=== PATIENT | female | born 1990 | race Caucasian/White ===

== ENCOUNTER 2017-08-28 22:35 | Inpatient (IN) | payer OTHER ==
[2017-08-28] MEDS: Lactated Ringers 1,000 ML IV SCH ×2 (23:01→23:34)
[2017-08-28] MEDS ORDERED: Misoprostol 400 MCG (4 X 100 MCG TAB) RECTAL PRN (23:01)
[2017-08-28] MEDS ORDERED: Ondansetron 4 MG/2 ML SDV IV PRN (23:01)
[2017-08-28] MEDS ORDERED: Methylergonovine 0.2 MG/1 ML Amp IM PRN (23:01)
[2017-08-28] MEDS ORDERED: Lactated Ringers 500 ML IV ONE (23:01)
[2017-08-28] MEDS ORDERED: Sodium Chloride 0.9% 10 ML Syringe FLUSH PRN (23:01)
[2017-08-28] MEDS ORDERED: Carboprost Tromethamine 250 MCG/1 ML Amp IM PRN (23:01)
[2017-08-28] MEDS ORDERED: Lidocaine 1% 30 ML SDV INJECT PRN (23:01)
[2017-08-28] MEDS ORDERED: Penicillin G Potassium 5 MILLUNITS in Sodium Chloride 0.9% 100 ML IV ONE (23:01)
[2017-08-28] MEDS ORDERED: Acetaminophen 325 MG Tab PO PRN (23:01)
[2017-08-28] MEDS ORDERED: Tranexamic Acid 1,000 MG in Sodium Chloride 0.9% 100 ML IV PRN (23:01)
[2017-08-28] MEDS ORDERED: Penicillin G Potassium 5,000,000 Unit Vial ONE (23:05)
[2017-08-28] MEDS ORDERED: EPINEPHrine 1 MG/ML SDV ONE (23:09)
[2017-08-28] MEDS ORDERED: Bupivacaine 0.75%/D5W 2 ML Amp ONE (23:09)
[2017-08-28] MEDS ORDERED: fentaNYL 100 MCG/2 ML SDV ONE (23:09)
--- NOTE | 2017-08-28 23:10 | PCM.LDHP ---
L&D History of Present Illness - General Date of Service: 08/28/17 Admit Problem/Dx: Patient Status Order with Admit Dx/Problem 08/28/17 23:01 Patient Status [ADT] Routine Admission Diagnosis/Problem Admission Diagnosis/Problem Normal labor Source of Information: Patient History Limitations: Reports: No Limitations - History of Present Illness Introduction:: Luna is a at 39w6d here with frequent contractions. They have been going on and off for the last few days but started getting more frequent today. They started occurring every 2-4 minutes at 9 pm this evening and are intense in nature. No draper of fluid, vaginal bleeding, baby is moving well. No headaches, vision changes, RUQ pain, dysuria, leg swelling. complications: GBS positive, Anemia (now resolved with iron). Also has seasonal allergies. - Related Data Allergies/Adverse Reactions: Allergies Allergy/AdvReac Type Severity Reaction Status Date / Time No Known Allergies Allergy Verified 08/27/17 22:29 Home Medications: Home Meds Ferrous Sulfate 325 mg PO DAILY 08/27/17 [History] Pnv No.122/Iron/Folic Acid [ Multi Tablet] 1 tab PO DAILY 08/27/17 [ History] Past Medical History HEENT History: Reports: None Cardiovascular History: Reports: None Respiratory History: Reports: None Gastrointestinal History: Reports: None Genitourinary History: Reports: None DIRECTOR PERIOPERATIVE History: Reports: : 1 Para: 0 LMP (Approximate): (39w5d) Musculoskeletal History: Reports: None Neurological History: Reports: None Psychiatric History: Reports: None Endocrine/Metabolic History: Reports: None Hematologic History: Reports: None Immunologic History: Reports: None (seasonal allergies), Other (See Below) Oncologic (Cancer) History: Reports: None Dermatologic History: Reports: None - Infectious Disease History Infectious Disease History: Reports: None - Past Surgical History Head Surgeries/Procedures: Reports: None GI Surgical History: Reports: Appendectomy Social & Family History - Family History Family Medical History: Noncontributory - Tobacco Use Smoking Status *Q: Never Smoker - Caffeine Use Caffeine Use: Reports: Coffee - Alcohol Use Alcohol Use History: No - Recreational Drug Use Recreational Drug Use: No - Living Situation & Occupation Living situation: Reports: Occupation: Employed Social History Comment: LIves with ; works in [employer] H&P Review of Systems - Review of Systems: Review Of Systems: See Below General: Reports: No Symptoms HEENT: Reports: No Symptoms Pulmonary: Reports: No Symptoms Cardiovascular: Reports: No Symptoms Gastrointestinal: Reports: Other (Uterine contractions) Genitourinary: Reports: No Symptoms Musculoskeletal: Reports: No Symptoms Skin: Reports: No Symptoms Psychiatric: Reports: No Symptoms Neurological: Reports: No Symptoms Hematologic/Lymphatic: Reports: No Symptoms Immunologic: Reports: No Symptoms L&D Exam - Exam Exam: See Below - Exam General: Alert, Oriented, Moderate Distress (with contractions) HEENT: PERRLA, Conjunctiva Clear, EACs Clear, EOMI, Hearing Intact, Mucosa Moist & [place], Nares Patent, Normal Nasal Septum, Posterior Pharynx Clear, TMs Clear Neck: Supple, Trachea Midline Lungs: Clear to Auscultation, Normal Respiratory Effort Cardiovascular: Regular Rate, Regular Rhythm GI/Abdominal Exam: Normal Bowel Sounds, Soft, Non-Tender, No Organomegaly, No Distention, No Abnormal Bruit, No Mass, Pelvis Stable Genitourinary: Cervical dilitation () Back Exam: Normal Inspection, Full Range of Motion Extremities: Normal Inspection, Normal Range of Motion, Non-Tender, No Pedal Edema, Normal Capillary Refill Skin: Warm, Dry, Intact Neurological: Cranial Nerves Intact, Reflexes Equal Bilateral Psychiatric: Alert, Normal Affect, Normal Mood - Problem List (1) Normal labor SNOMED Code(s): 43926577 ICD Code: O80 - ENCOUNTER FOR FULL-TERM UNCOMPLICATED DELIVERY; Z37.9 - OUTCOME OF DELIVERY, UNSPECIFIED Status: Acute Current Visit: Yes (2) Positive GBS test SNOMED Code(s): 6893765736923, 3446161758292 ICD Code: B95.1 - STREPTOCOCCUS, GROUP B, CAUSING DISEASES CLASSD ELSWHR Status: Acute Current Visit: Yes Problem List Initiated/Reviewed/Updated: Yes Orders Last 24hrs: Active Orders 24 hr Category Date Time Status Patient Status [ADT] Routine ADT 08/28/17 23:01 Ordered Communication Order [RC] ASDIRECTED Care 08/28/17 23:01 Ordered Heart Tones [RC] PER UNIT ROUTINE Care 08/28/17 23:01 Ordered Notify Provider Vital Signs OB [RC] ASDIRECTED Care 08/28/17 23:01 Ordered Notify Provider [RC] PRN Care 08/28/17 23:01 Ordered Pump Management, Intrathecal [RC] ASDIRECTED Care 08/28/17 23:01 Ordered Up ad Diana [RC] ASDIRECTED Care 08/28/17 23:01 Ordered Vital Signs [RC] PER UNIT ROUTINE Care 08/28/17 23:01 Ordered Nothing Per Oral Diet [DIET] Diet 08/28/17 Breakfast Ordered CBC W/O DIFF,HEMOGRAM [HEME] Routine Lab 08/28/17 23:01 Ordered Acetaminophen [Tylenol] Med 08/28/17 23:01 Ordered 650 mg PO Q4H PRN Carboprost Tromethamine [Hemabate DS] Med 08/28/17 23:01 Ordered 250 mcg IM ASDIRECTED PRN Lactated Ringers @ 125 MLS/HR(1000ml) Med 08/28/17 23:15 Ordered Lactated Ringers [Ringers, Lactated] 1,000 ml IV ASDIRECTED Lactated Ringers [Ringers, Lactated] 500 ml Med 08/28/17 23:01 Ordered IV .BOLUS Lidocaine 1% [Xylocaine-MPF 1%] Med 08/28/17 23:01 Ordered 10 ml INJECT ASDIRECTED PRN Methylergonovine [Methergine] Med 08/28/17 23:01 Ordered 0.2 mg IM ASDIRECTED PRN Misoprostol [Cytotec] Med 08/28/17 23:01 Ordered 800 mcg RECTAL ASDIRECTED PRN Ondansetron [Zofran] Med 08/28/17 23:01 Ordered 4 mg IV Q4H PRN Penicillin G Potassium [Pfizerpen] 3 millunits Med 08/29/17 02:00 Ordered Sodium Chloride 0.9% [Normal Saline] 100 ml IV Q4HR Penicillin G Potassium [Pfizerpen] 5 millunits Med 08/28/17 23:01 Ordered Sodium Chloride 0.9% [Normal Saline] 100 ml IV ONETIME Sodium Chloride 0.9% [Saline Flush] Med 08/28/17 23:01 Ordered 10 ml FLUSH ASDIRECTED PRN Tranexamic Acid [Cyklokapron] 1,000 mg Med 08/28/17 23:01 Ordered Sodium Chloride 0.9% [Normal Saline] 100 ml IV ONETIME Saline Lock Insert [OM.PC] Routine Oth 08/28/17 23:01 Ordered Resuscitation Status Routine Resus Stat 08/28/17 23:01 Ordered Medication Orders Acetaminophen (Tylenol) 650 mg PO Q4H PRN PRN Reason: Pain (Mild 1-3) and fever Carboprost Tromethamine (Hemabate Ds) 250 mcg IM ASDIRECTED PRN PRN Reason: HEMORRHAGE Lactated Ringer's (Ringers, Lactated) 500 mls @ 500 mls/hr IV .BOLUS ONE Stop: 08/29/17 00:00 Lactated Ringer's (Ringers, Lactated) 1,000 mls @ 125 mls/hr IV ASDIRECTED ERICK Penicillin G Potassium 5 (millunits/ Sodium Chloride) 100 mls @ 200 mls/hr IV ONETIME ONE Stop: 08/28/17 23:30 Penicillin G Potassium 3 (millunits/ Sodium Chloride) 100 mls @ 200 mls/hr IV Q4HR ERICK Tranexamic Acid 1,000 mg/ (Sodium Chloride) 110 mls @ 660 mls/hr IV ONETIME PRN PRN Reason: Bleeding Lidocaine HCl (Xylocaine-Mpf 1%) 10 ml INJECT ASDIRECTED PRN PRN Reason: Perineal Repair Methylergonovine Maleate (Methergine) 0.2 mg IM ASDIRECTED PRN PRN Reason: Hemorrhage Misoprostol (Cytotec) 800 mcg RECTAL ASDIRECTED PRN PRN Reason: Hemorrhage Ondansetron HCl (Zofran) 4 mg IV Q4H PRN PRN Reason: Nausea/Vomiting Sodium Chloride (Saline Flush) 10 ml FLUSH ASDIRECTED PRN PRN Reason: Keep Vein Open Assessment/Plan Comment:: Normal Labor, 39w6d, GBS positive, Admit to L&D Continuous TOCO and EFM Elevated BP on admission, will recheck once settled in and if still elevated get PIH labs Intrathecal Routine intrapartum labs and orders Penicillin for GBS positive status Goal to wait 4 hours of penicillin, then AROM and expectant management for Maggi Perea MD PGYIII
[2017-08-28] MEDS ORDERED: Oxytocin/Normal Saline 30 UNIT/500 ML BAG ONE (23:28)
--- NOTE | 2017-08-28 23:39 | PCM.SN ---
- Free Text/Narrative Note: Intrathecal. Sitting position, sterile prep and drape. 1% lidocaine w bicarb for skinwheal to L3 L4 interspace, introducer, 24 ga pencan x 2. Pos CSF, neg heme, neg parasthesia. 20 mcg pf sufenta, 30 mcg pf fentanyl, 0.4 ml pf ns and 6 mg of 0.75 % pf bupivacaine injected w CSF aspiration. Pt to L lateral position. Procedure time 2315 to 2350
[2017-08-29] MEDS ORDERED: Penicillin G Potassium 3 MILLUNITS in Sodium Chloride 0.9% 100 ML IV SCH (02:00)
[2017-08-29] MEDS ORDERED: Oxytocin/Normal Saline 30 UNIT/500 ML BAG IV SCH (03:40)
[2017-08-29] MEDS ORDERED: Benzocaine/Menthol 20%-0.5% Spray 56 GM Canister TOP PRN (04:07)
[2017-08-29] MEDS ORDERED: Misoprostol 400 MCG (4 X 100 MCG TAB) RECTAL PRN (04:07)
[2017-08-29] MEDS ORDERED: Carboprost Tromethamine 250 MCG/1 ML Amp IM PRN (04:07)
[2017-08-29] MEDS ORDERED: Oxytocin 10 Units/1 ML SDV IM PRN (04:07)
[2017-08-29] MEDS ORDERED: Simethicone 80 MG Tab.Chew PO PRN (04:07)
[2017-08-29] MEDS ORDERED: Zolpidem 5 MG Tab PO PRN (04:07)
[2017-08-29] MEDS ORDERED: Acetaminophen 325 MG Tab PO PRN (04:07)
[2017-08-29] MEDS ORDERED: Tranexamic Acid 1,000 MG in Sodium Chloride 0.9% 100 ML IV PRN (04:07)
[2017-08-29] MEDS ORDERED: Sodium Chloride 0.9% 10 ML Syringe FLUSH PRN (04:07)
--- NOTE | 2017-08-29 04:18 | PCM.DEL ---
L & D Note - General Info Date of Service: 08/29/17 - Delivery Note Labor: Spontaneous Delivery Outcome: Livebirth Delivery Method: Spontaneous Vaginal Delivery-Single Presentation: Left Occiput Anterior (EMELI) Anesthesia Type: Intrathecal Episiotomy Type: None Laceration: 2nd Degree Suture type: Chromic Suture size: 3-0 Placenta: Intact, Spontaneous Davidson: Suctioned Score 1 min: 9 Score 5 min: 9 Delivery Comments (Free Text/Narrative):: Luna is a now female at 40w0d who came to the OB floor in normal labor. She progressed to complete and delivered a viable female over a 2nd degree laceration which was repaired in the usual fashion with a 3.0 chromic suture given allergy to vicryl. She received 2 doses of penicillin for GBS positive status. Placenta delivered and her bleeding was well controlled. - General Info Date of Service: 08/29/17 - Patient Data Vitals - Most Recent: Last Vital Signs Temp 37.1 C 08/28/17 23:05 Pulse 62 08/29/17 00:30 Resp 16 08/29/17 00:30 BP 117/55 L 08/29/17 00:30 Pulse Ox 94 L 08/29/17 00:30 Weight - Most Recent: 97.069 kg I&O - Last 24 Hours: Intake & Output 08/28/17 08/28/17 08/29/17 14:59 22:59 06:59 Intake Total 1100 Balance 1100 Lab Results Last 24 Hours: Laboratory Results - last 24 hr 08/28/17 Range/Units 23:05 WBC 12.5 H (5.0-10.0) 10^3/uL RBC 4.09 L (4.2-5.4) 10^6/uL Hgb 12.4 (12.0-16.0) g/dL Hct 36.5 L (37.0-47.0) % MCV 89.2 (80-100) fL MCH 30.3 (27.0-34.0) pg MCHC 34.0 (33.0-35.0) g/dL Plt Count 199 (150-450) 10^3/uL Med Orders - Current: Current Medications Acetaminophen (Tylenol) 650 mg PO Q6H PRN PRN Reason: mild pain or fever Benzocaine/Menthol (Dermoplast Pain Relief [place]) 0 gm TOP Q4H PRN PRN Reason: Perineal comfort measures Carboprost Tromethamine (Hemabate Ds) 250 mcg IM ASDIRECTED PRN PRN Reason: Excessive vaginal bleeding Docusate Sodium (Colace) 100 mg PO BID PRN PRN Reason: Constipation Oxytocin/Sodium Chloride (Pitocin In Ns 30 Unit/500 Ml) 30 unit in 500 mls @ 500 mls/hr IV TITRATE ERICK; Protocol Tranexamic Acid 1,000 mg/ (Sodium Chloride) 110 mls @ 660 mls/hr IV ONETIME PRN PRN Reason: Bleeding Ibuprofen (Motrin) 800 mg PO Q8H PRN PRN Reason: Mild Pain or Fever Misoprostol (Cytotec) 800 mcg RECTAL ONETIME PRN PRN Reason: Hemorrhage Oxytocin (Pitocin) 10 unit IM ONETIME PRN PRN Reason: Bleeding Prenat Multivit/Barren/Iron/Folic Ac ( Plus Iron) 1 each PO DAILY ERICK Simethicone (Simethicone) 80 mg PO Q4H PRN PRN Reason: Gas Sodium Chloride (Saline Flush) 10 ml FLUSH ASDIRECTED PRN PRN Reason: Keep Vein Open Sodium Chloride (Saline Flush) 10 ml FLUSH ASDIRECTED PRN PRN Reason: Keep Vein Open Zolpidem Tartrate (Ambien) 5 mg PO BEDTIME PRN PRN Reason: Insomnia Discontinued Medications Acetaminophen (Tylenol) 650 mg PO Q4H PRN PRN Reason: Pain (Mild 1-3) and fever Bupivacaine HCl/Dextrose (Marcaine 0.75% Spinal) Confirm Administered Dose 2 ml .ROUTE .[employer] ONE Stop: 08/28/17 23:10 Last Admin: 08/29/17 01:00 Dose: Not Given Carboprost Tromethamine (Hemabate Ds) 250 mcg IM ASDIRECTED PRN PRN Reason: HEMORRHAGE Epinephrine HCl (Adrenalin) Confirm Administered Dose 1 mg .ROUTE .[employer] ONE Stop: 08/28/17 23:10 Last Admin: 08/29/17 00:58 Dose: Not Given Fentanyl (Sublimaze) Confirm Administered Dose 100 mcg .ROUTE .[employer] ONE Stop: 08/28/17 23:10 Last Admin: 08/29/17 01:01 Dose: Not Given Lactated Ringer's (Ringers, Lactated) 500 mls @ 500 mls/hr IV .BOLUS ONE Stop: 08/29/17 00:00 Last Admin: 08/29/17 01:02 Dose: Not Given Lactated Ringer's (Ringers, Lactated) 1,000 mls @ 125 mls/hr IV ASDIRECTED ERICK Last Admin: 08/28/17 23:34 Dose: 125 mls/hr Penicillin G Potassium 5 (millunits/ Sodium Chloride) 100 mls @ 200 mls/hr IV ONETIME ONE Stop: 08/28/17 23:30 Last Admin: 08/28/17 23:13 Dose: 200 mls/hr Penicillin G Potassium 3 (millunits/ Sodium Chloride) 100 mls @ 200 mls/hr IV Q4HR [facility] Last Admin: 08/29/17 02:53 Dose: 200 mls/hr Tranexamic Acid 1,000 mg/ (Sodium Chloride) 110 mls @ 660 mls/hr IV ONETIME PRN PRN Reason: Bleeding Oxytocin/Sodium Chloride (Pitocin In Ns 30 Unit/500 Ml) Confirm Administered Dose 30 unit in 500 mls @ as directed .ROUTE .STK-MED ONE Stop: 08/28/17 23:29 Last Admin: 08/29/17 01:02 Dose: Not Given Lidocaine HCl (Xylocaine-Mpf 1%) 10 ml INJECT ASDIRECTED PRN PRN Reason: Perineal Repair Last Admin: 08/29/17 03:45 Dose: 7 ml Methylergonovine Maleate (Methergine) 0.2 mg IM ASDIRECTED PRN PRN Reason: Hemorrhage Misoprostol (Cytotec) 800 mcg RECTAL ASDIRECTED PRN PRN Reason: Hemorrhage Ondansetron HCl (Zofran) 4 mg IV Q4H PRN PRN Reason: Nausea/Vomiting Penicillin G Potassium (Pfizerpen) Confirm Administered Dose 5 millunits .ROUTE .STK-MED ONE Stop: 08/28/17 23:06 Last Admin: 08/28/17 23:14 Dose: Not Given Sodium Bicarbonate (Sodium Bicarbonate 4.2%) Confirm Administered Dose 5 meq .ROUTE .STK-MED ONE Stop: 08/28/17 23:11 Last Admin: 08/29/17 01:00 Dose: Not Given Sufentanil Citrate (Sufenta) Confirm Administered Dose 50 mcg .ROUTE .STK-MED ONE Stop: 08/28/17 23:10 Last Admin: 08/29/17 01:01 Dose: Not Given - Problem List & Annotations (1) Normal labor SNOMED Code(s): 90122334 Code(s): O80 - ENCOUNTER FOR FULL-TERM UNCOMPLICATED DELIVERY; Z37.9 - OUTCOME OF DELIVERY, UNSPECIFIED Status: Acute Current Visit: Yes (2) Positive GBS test SNOMED Code(s): 5652152605090, 7306244130438 Code(s): B95.1 - STREPTOCOCCUS, GROUP B, CAUSING DISEASES CLASSD ELSWHR Status: Acute Current Visit: Yes (3) (normal spontaneous vaginal delivery) SNOMED Code(s): 79597781 Code(s): O80 - ENCOUNTER FOR FULL-TERM UNCOMPLICATED DELIVERY Status: Acute Current Visit: Yes (4) Second degree perineal laceration SNOMED Code(s): 4432010 Code(s): O70.1 - SECOND DEGREE PERINEAL LACERATION DURING DELIVERY Status: Acute Current Visit: Yes - Problem List Review Problem List Initiated/Reviewed/Updated: Yes - My Orders Last 24 Hours: My Active Orders 08/28/17 23:01 Sodium Chloride 0.9% [Saline Flush] 10 ml FLUSH ASDIRECTED PRN Saline Lock Insert [OM.PC] Routine 08/29/17 04:07 Vital Signs [RC] PFP Acetaminophen [Tylenol] 650 mg PO Q6H PRN Benzocaine/Menthol [Dermoplast Pain Relief [place]] See Dose Instructions TOP Q4H PRN Carboprost Tromethamine [Hemabate DS] 250 mcg IM ASDIRECTED PRN Docusate Sodium [Colace] 100 mg PO BID PRN Ibuprofen [Motrin] 800 mg PO Q8H PRN Misoprostol [Cytotec] 800 mcg RECTAL ONETIME PRN Oxytocin [Pitocin] 10 unit IM ONETIME PRN Simethicone 80 mg PO Q4H PRN Sodium Chloride 0.9% [Saline Flush] 10 ml FLUSH ASDIRECTED PRN Tranexamic Acid [Cyklokapron] 1,000 mg Sodium Chloride 0.9% [Normal Saline] 100 ml IV ONETIME Zolpidem [Ambien] 5 mg PO BEDTIME PRN 08/29/17 04:08 Notify Provider Vital Signs OB [RC] ASDIRECTED Up ad Diana [RC] ASDIRECTED CBC W/O DIFF,HEMOGRAM [HEME] Routine Assess Lochia [WOMSER] Per Unit Routine Assess Uterine Involution [WOMSER] Per Unit Routine Breast Pump [WOMSER] Per Unit Routine Ice Therapy [OM.PC] Per Unit Routine Perineal Care [OM.PC] Per Unit Routine Saline Lock Insert [OM.PC] Urgent Sitz Bath [OM.PC] Per Unit Routine 08/29/17 09:00 Vit with Ca/FA/Iron [ Plus Iron] 1 each PO DAILY 08/29/17 Breakfast Regular Diet [DIET] - Assessment Assessment:: - Plan Plan:: Routine post cares Maggi Perea MD PGYIII
[2017-08-29] MEDS: Ibuprofen 800 MG Tab PO PRN ×2 (10:29→18:40)
[2017-08-29] MEDS: Docusate Sodium 100 MG Cap PO PRN ×2 (10:29→21:44)
[2017-08-29] MEDS: Prenatal Multivitamin with Calcium/Folic Acid/Iron Tab PO SCH (10:29)
--- NOTE | 2017-08-29 15:51 | DEL ---
DATE: 08/29/2017 PREDELIVERY DIAGNOSIS: This is an intrauterine at term, admitted in active labor, group B Strep positive. PROCEDURE: Normal spontaneous vaginal delivery. DELIVERING CLINICIAN: Rashad Wilcox MD. DIESEL MECHANIC HELPER: Dr. Perea. FINDINGS: Viable infant, score of 9 and 9. Weight 6 pounds 12 ounces. Placenta was delivered intact. EBL was normal and there was a midline vaginal laceration which was repaired with chromic. PROCEDURE IN DETAIL: The patient was admitted earlier in the evening in active labor. Penicillin was started for group B Strep prophylaxis and she did complete an entire course. The patient did receive an intrathecal. She then dilated to complete and had the urge to push. The patient did push and the 's head was delivered. Shoulder was delivered without any difficulties, and the was placed on the maternal abdomen. The cord was cut and clamped and the cord blood was collected. The placenta was then delivered intact, third stage Pitocin was started and some uterine massage was given. The patient then had a midline vaginal laceration which was repaired with a running chromic suture. She is allergic to Vicryl with excellent hemostasis. At the end of the procedure, mom and baby were both doing well. scores were 9 and 9. Baby weighed 6 pounds 12 ounces. [facility] /[id number]
--- NOTE | 2017-08-30 08:15 | PCM.DCSUM1 ---
<Maggi Perea - Last Filed: 08/30/17 08:10> Discharge Summary - Hospital Course Free Text/Narrative:: Luna is a now PPD1 from [facility] at 40w0d. Her bleeding has been mild. Pain is well controlled. She is breast feeding. No headaches, lightheadedness , fevers, chills, leg swelling. - Discharge Data Discharge Date: 08/30/17 Discharge Disposition: Home, Self-Care 01 Condition: Good - Discharge Diagnosis/Problem(s) (1) Normal labor SNOMED Code(s): 65027024 ICD Code: O80 - ENCOUNTER FOR FULL-TERM UNCOMPLICATED DELIVERY; Z37.9 - OUTCOME OF DELIVERY, UNSPECIFIED Status: Acute (2) Positive GBS test SNOMED Code(s): 3431673893275, 9537015500847 ICD Code: B95.1 - STREPTOCOCCUS, GROUP B, CAUSING DISEASES CLASSD ELSWHR Status: Acute (3) (normal spontaneous vaginal delivery) SNOMED Code(s): 80228065 ICD Code: O80 - ENCOUNTER FOR FULL-TERM UNCOMPLICATED DELIVERY Status: Acute (4) Second degree perineal laceration SNOMED Code(s): 3291497 ICD Code: O70.1 - SECOND DEGREE PERINEAL LACERATION DURING DELIVERY Status : Acute - Patient Instructions Diet: Regular Diet as Tolerated Activity: As Tolerated Driving: May Drive Today Showering/Bathing: May Shower Notify Provider of: Fever, Increased Pain, Nausea and/or Vomiting - Discharge Plan Home Medications: Home Meds Ferrous Sulfate 325 mg PO DAILY 08/27/17 [History] Pnv No.122/Iron/Folic Acid [ Multi Tablet] 1 tab PO DAILY 08/27/17 [ History] Calcium Carbonate/Vitamin D3 [Calcium 500 + Vit D Caplet] 1 tab PO DAILY [History] Patient Handouts: Home Care Instructions for Mom, Vaginal Delivery, Care After Referrals: Tracy Camejo MD [Primary Care Provider] - (Please schedule your own 6 week appointment. ) - Discharge Summary/Plan Comment Discharge Summary/Plan Comment: Discharge to home with routine post cares. Follow up in 6 weeks. Post hemoglobin was good. Discussed signs/symptoms that would prompt reevaluation earlier. - Patient Data Vitals - Most Recent: Last Vital Signs Temp 36.6 C 08/29/17 20:00 Pulse 94 08/29/17 20:00 Resp 16 08/29/17 20:00 BP 129/92 H 08/29/17 20:00 Pulse Ox 97 08/29/17 01:15 Weight - Most Recent: 97.069 kg Lab Results - Last 24 hrs: Laboratory Results - last 24 hr 08/30/17 Range/Units 07:20 WBC 11.0 H (5.0-10.0) 10^3/uL RBC 3.62 L (4.2-5.4) 10^6/uL Hgb 11.0 L (12.0-16.0) g/dL Hct 33.2 L (37.0-47.0) % MCV 91.7 (80-100) fL MCH 30.4 (27.0-34.0) pg MCHC 33.1 (33.0-35.0) g/dL Plt Count 150 (150-450) 10^3/uL Med Orders - Current: Current Medications Acetaminophen (Tylenol) 650 mg PO Q6H PRN PRN Reason: mild pain or fever Benzocaine/Menthol (Dermoplast Pain Relief [place]) 0 gm TOP Q4H PRN PRN Reason: Perineal comfort measures Last Admin: 08/29/17 10:29 Dose: 1 applic Carboprost Tromethamine (Hemabate Ds) 250 mcg IM ASDIRECTED PRN PRN Reason: Excessive vaginal bleeding Docusate Sodium (Colace) 100 mg PO BID PRN PRN Reason: Constipation Last Admin: 08/29/17 21:44 Dose: 100 mg Oxytocin/Sodium Chloride (Pitocin In Ns 30 Unit/500 Ml) 30 unit in 500 mls @ 500 mls/hr IV TITRATE ERICK; Protocol Last Titration: 08/29/17 06:55 Dose: 0 mls/hr Tranexamic Acid 1,000 mg/ (Sodium Chloride) 110 mls @ 660 mls/hr IV ONETIME PRN PRN Reason: Bleeding Ibuprofen (Motrin) 800 mg PO Q8H PRN PRN Reason: Mild Pain or Fever Last Admin: 08/29/17 18:40 Dose: 800 mg Misoprostol (Cytotec) 800 mcg RECTAL ONETIME PRN PRN Reason: Hemorrhage Oxytocin (Pitocin) 10 unit IM ONETIME PRN PRN Reason: Bleeding Prenat Multivit/[employer]il [employer] Machine [employer]/Iron/Folic Ac ( Plus Iron) 1 each PO DAILY [facility] Last Admin: 08/29/17 10:29 Dose: 1 each Simethicone (Simethicone) 80 mg PO Q4H PRN PRN Reason: Gas Sodium Chloride (Saline Flush) 10 ml FLUSH ASDIRECTED PRN PRN Reason: Keep Vein Open Sodium Chloride (Saline Flush) 10 ml FLUSH ASDIRECTED PRN PRN Reason: Keep Vein Open Zolpidem Tartrate (Ambien) 5 mg PO BEDTIME PRN PRN Reason: Insomnia Discontinued Medications Acetaminophen (Tylenol) 650 mg PO Q4H PRN PRN Reason: Pain (Mild 1-3) and fever Bupivacaine HCl/Dextrose (Marcaine 0.75% Spinal) Confirm Administered Dose 2 ml .ROUTE .STK-MED ONE Stop: 08/28/17 23:10 Last Admin: 08/29/17 01:00 Dose: Not Given Carboprost Tromethamine (Hemabate Ds) 250 mcg IM ASDIRECTED PRN PRN Reason: HEMORRHAGE Epinephrine HCl (Adrenalin) Confirm Administered Dose 1 mg .ROUTE .STK-MED ONE Stop: 08/28/17 23:10 Last Admin: 08/29/17 00:58 Dose: Not Given Fentanyl (Sublimaze) Confirm Administered Dose 100 mcg .ROUTE .STK-MED ONE Stop: 08/28/17 23:10 Last Admin: 08/29/17 01:01 Dose: Not Given Lactated Ringer's (Ringers, Lactated) 500 mls @ 500 mls/hr IV .BOLUS ONE Stop: 08/29/17 00:00 Last Admin: 08/29/17 01:02 Dose: Not Given Lactated Ringer's (Ringers, Lactated) 1,000 mls @ 125 mls/hr IV ASDIRECTED [facility] Last Admin: 08/28/17 23:34 Dose: 125 mls/hr Penicillin G Potassium 5 (millunits/ Sodium Chloride) 100 mls @ 200 mls/hr IV ONETIME ONE Stop: 08/28/17 23:30 Last Admin: 08/28/17 23:13 Dose: 200 mls/hr Penicillin G Potassium 3 (millunits/ Sodium Chloride) 100 mls @ 200 mls/hr IV Q4HR [facility] Last Admin: 08/29/17 02:53 Dose: 200 mls/hr Tranexamic Acid 1,000 mg/ (Sodium Chloride) 110 mls @ 660 mls/hr IV ONETIME PRN PRN Reason: Bleeding Oxytocin/Sodium Chloride (Pitocin In Ns 30 Unit/500 Ml) Confirm Administered Dose 30 unit in 500 mls @ as directed .ROUTE .STK-MED ONE Stop: 08/28/17 23:29 Last Admin: 08/29/17 01:02 Dose: Not Given Lidocaine HCl (Xylocaine-Mpf 1%) 10 ml INJECT ASDIRECTED PRN PRN Reason: Perineal Repair Last Admin: 08/29/17 03:45 Dose: 7 ml Methylergonovine Maleate (Methergine) 0.2 mg IM ASDIRECTED PRN PRN Reason: Hemorrhage Misoprostol (Cytotec) 800 mcg RECTAL ASDIRECTED PRN PRN Reason: Hemorrhage Ondansetron HCl (Zofran) 4 mg IV Q4H PRN PRN Reason: Nausea/Vomiting Penicillin G Potassium (Pfizerpen) Confirm Administered Dose 5 millunits .ROUTE .STK-MED ONE Stop: 08/28/17 23:06 Last Admin: 08/28/17 23:14 Dose: Not Given Sodium Bicarbonate (Sodium Bicarbonate 4.2%) Confirm Administered Dose 5 meq .ROUTE .STK-MED ONE Stop: 08/28/17 23:11 Last Admin: 08/29/17 01:00 Dose: Not Given Sufentanil Citrate (Sufenta) Confirm Administered Dose 50 mcg .ROUTE .STK-MED ONE Stop: 08/28/17 23:10 Last Admin: 08/29/17 01:01 Dose: Not Given - Exam General: Reports: Alert, Oriented HEENT: Reports: Pupils Equal, Pupils Reactive, EOMI, Mucous Membr. Moist/[place] Neck: Reports: Supple Lungs: Reports: Clear to Auscultation, Normal Respiratory Effort Cardiovascular: Reports: Regular Rate, Regular Rhythm GI/Abdominal Exam: Normal Bowel Sounds, Soft, Non-Tender, No Organomegaly, No Distention, No Abnormal Bruit, No Mass Back Exam: Reports: Normal Inspection, Full Range of Motion Extremities: Normal Inspection, Normal Range of Motion, Non-Tender, No Pedal Edema, Normal Capillary Refill Skin: Reports: Warm, Dry, Intact Neurological: Reports: No New Focal Deficit Psy/Mental Status: Reports: Alert, Normal Affect, Normal Mood <Tracy Camejo Susana - Last Filed: 08/31/17 08:24> Discharge Summary - Discharge Summary/Plan Comment DC Time >30 min.: No Discharge Summary/Plan Comment: Patient seen and agree with note as written by Dr. Perea PGY3. -[facility] 08/31/17813 - Patient Data Vitals - Most Recent: Last Vital Signs Temp 99.3 F 08/30/17 08:00 Pulse 94 08/29/17 20:00 Resp 16 08/30/17 08:00 BP 132/87 08/30/17 08:00 Pulse Ox 97 08/29/17 01:15 Med Orders - Current: Current Medications Discontinued Medications Acetaminophen (Tylenol) 650 mg PO Q4H PRN PRN Reason: Pain (Mild 1-3) and fever Acetaminophen (Tylenol) 650 mg PO Q6H PRN PRN Reason: mild pain or fever Benzocaine/Menthol (Dermoplast Pain Relief [place]) 0 gm TOP Q4H PRN PRN Reason: Perineal comfort measures Last Admin: 08/29/17 10:29 Dose: 1 applic Bupivacaine HCl/Dextrose (Marcaine 0.75% Spinal) Confirm Administered Dose 2 ml .ROUTE .STK-MED ONE Stop: 08/28/17 23:10 Last Admin: 08/29/17 01:00 Dose: Not Given Bupivacaine HCl/Dextrose (Marcaine 0.75% Spinal) 2 ml .XX .STK-MED ONE Stop: 08/30/17 13:20 Carboprost Tromethamine (Hemabate Ds) 250 mcg IM ASDIRECTED PRN PRN Reason: HEMORRHAGE Carboprost Tromethamine (Hemabate Ds) 250 mcg IM ASDIRECTED PRN PRN Reason: Excessive vaginal bleeding Docusate Sodium (Colace) 100 mg PO BID PRN PRN Reason: Constipation Last Admin: 08/30/17 08:32 Dose: 100 mg Epinephrine HCl (Adrenalin) Confirm Administered Dose 1 mg .ROUTE .STK-MED ONE Stop: 08/28/17 23:10 Last Admin: 08/29/17 00:58 Dose: Not Given Fentanyl (Sublimaze) Confirm Administered Dose 100 mcg .ROUTE .STK-MED ONE Stop: 08/28/17 23:10 Last Admin: 08/29/17 01:01 Dose: Not Given Fentanyl (Sublimaze) 30 mcg ITHECAL .STK-MED ONE Stop: 08/30/17 13:20 Lactated Ringer's (Ringers, Lactated) 500 mls @ 500 mls/hr IV .BOLUS ONE Stop: 08/29/17 00:00 Last Admin: 08/29/17 01:02 Dose: Not Given Lactated Ringer's (Ringers, Lactated) 1,000 mls @ 125 mls/hr IV ASDIRECTED ERICK Last Admin: 08/28/17 23:34 Dose: 125 mls/hr Penicillin G Potassium 5 (millunits/ Sodium Chloride) 100 mls @ 200 mls/hr IV ONETIME ONE Stop: 08/28/17 23:30 Last Admin: 08/28/17 23:13 Dose: 200 mls/hr Penicillin G Potassium 3 (millunits/ Sodium Chloride) 100 mls @ 200 mls/hr IV Q4HR ERICK Last Admin: 08/29/17 02:53 Dose: 200 mls/hr Tranexamic Acid 1,000 mg/ (Sodium Chloride) 110 mls @ 660 mls/hr IV ONETIME PRN PRN Reason: Bleeding Oxytocin/Sodium Chloride (Pitocin In Ns 30 Unit/500 Ml) Confirm Administered Dose 30 unit in 500 mls @ as directed .ROUTE .STK-MED ONE Stop: 08/28/17 23:29 Last Admin: 08/29/17 01:02 Dose: Not Given Oxytocin/Sodium Chloride (Pitocin In Ns 30 Unit/500 Ml) 30 unit in 500 mls @ 500 mls/hr IV TITRATE ERICK; Protocol Last Titration: 08/29/17 06:55 Dose: 0 mls/hr Tranexamic Acid 1,000 mg/ (Sodium Chloride) 110 mls @ 660 mls/hr IV ONETIME PRN PRN Reason: Bleeding Ibuprofen (Motrin) 800 mg PO Q8H PRN PRN Reason: Mild Pain or Fever Last Admin: 08/30/17 08:32 Dose: 800 mg Lidocaine HCl (Xylocaine-Mpf 1%) 10 ml INJECT ASDIRECTED PRN PRN Reason: Perineal Repair Last Admin: 08/29/17 03:45 Dose: 7 ml Lidocaine HCl (Xylocaine-Mpf 1%) 3 ml .XX .STK-MED ONE Stop: 08/30/17 13:20 Methylergonovine Maleate (Methergine) 0.2 mg IM ASDIRECTED PRN PRN Reason: Hemorrhage Misoprostol (Cytotec) 800 mcg RECTAL ASDIRECTED PRN PRN Reason: Hemorrhage Misoprostol (Cytotec) 800 mcg RECTAL ONETIME PRN PRN Reason: Hemorrhage Ondansetron HCl (Zofran) 4 mg IV Q4H PRN PRN Reason: Nausea/Vomiting Oxytocin (Pitocin) 10 unit IM ONETIME PRN PRN Reason: Bleeding Penicillin G Potassium (Pfizerpen) Confirm Administered Dose 5 millunits .ROUTE .STK-MED ONE Stop: 08/28/17 23:06 Last Admin: 08/28/17 23:14 Dose: Not Given Prenat Multivit/[place]/Iron/Folic Ac ( Plus Iron) 1 each PO DAILY [facility] Last Admin: 08/30/17 08:31 Dose: 1 each Simethicone (Simethicone) 80 mg PO Q4H PRN PRN Reason: Gas Sodium Bicarbonate (Sodium Bicarbonate 4.2%) Confirm Administered Dose 5 meq .ROUTE .STK-MED ONE Stop: 08/28/17 23:11 Last Admin: 08/29/17 01:00 Dose: Not Given Sodium Bicarbonate (Sodium Bicarbonate 4.2%) 0.5 meq .XX .STK-MED ONE Stop: 08/30/17 13:20 Sodium Chloride (Saline Flush) 10 ml FLUSH ASDIRECTED PRN PRN Reason: Keep Vein Open Sodium Chloride (Saline Flush) 10 ml FLUSH ASDIRECTED PRN PRN Reason: Keep Vein Open Sodium Chloride (Normal Saline) 1 ml IV .STK-MED ONE Stop: 08/30/17 13:20 Sufentanil Citrate (Sufenta) Confirm Administered Dose 50 mcg .ROUTE .STK-MED ONE Stop: 08/28/17 23:10 Last Admin: 08/29/17 01:01 Dose: Not Given Sufentanil Citrate (Sufenta) 20 mcg ITHECAL .STK-MED ONE Stop: 08/30/17 13:20 Zolpidem Tartrate (Ambien) 5 mg PO BEDTIME PRN PRN Reason: Insomnia
[2017-08-30] MEDS: Prenatal Multivitamin with Calcium/Folic Acid/Iron Tab PO SCH (08:31)
[2017-08-30] MEDS: Ibuprofen 800 MG Tab PO PRN (08:32)
[2017-08-30] MEDS: Docusate Sodium 100 MG Cap PO PRN (08:32)
[2017-08-30] MEDS ORDERED: Sodium Chloride 0.9% 10 ML SDV IV ONE (13:19)
[2017-08-30] MEDS ORDERED: Bupivacaine 0.75%/D5W 2 ML Amp ONE (13:19)
[2017-08-30] MEDS ORDERED: fentaNYL 100 MCG/2 ML SDV ITHECAL ONE (13:19)
== END 2017-08-30 13:20 | disposition home or self-care (01) | DRG 775 ==
LOC: DL.OBCHECK 22:35 → DL.OB 23:01 → UNDOADMOB 23:09 → DL.OB 23:09 → OBSVTOIN 08-29 03:40
PROVIDERS: ADMIT Obstetrics & Gynecology; ATTEND Obstetrics & Gynecology
PROC: 10E0XZZ Delivery of Products of Conception, External Approach (ICD-10-PCS; principal; 2017-08-29)
PROC: 0KQM0ZZ Repair Perineum Muscle, Open Approach (ICD-10-PCS; 2017-08-29)
DX: O70.1 Second degree perineal laceration during delivery (principal); Z37.0 Single live birth; Z3A.40 40 weeks gestation of pregnancy; O99.824 Streptococcus B carrier state complicating childbirth
CPT/HCPCS: 36415; 51701; 59300; 59409; 85027; A9270-GY; J2540; J2590; J3010; J7050; J7120

== ENCOUNTER 2020-02-13 03:26 | Inpatient (IN) | payer OTHER ==
[2020-02-13] MEDS: Lactated Ringers 1,000 ML IV SCH ×4 (03:55→12:14)
[2020-02-13] MEDS ORDERED: Penicillin G Potassium 5 MILLUNITS in Sodium Chloride 0.9% 100 ML IV ONE (04:02)
[2020-02-13] MEDS ORDERED: Methylergonovine 0.2 MG/1 ML Amp IM PRN (04:04)
[2020-02-13] MEDS ORDERED: Naloxone 2 MG/2 ML Syringe IVPUSH PRN (04:04)
[2020-02-13] MEDS ORDERED: Misoprostol 400 MCG (4 X 100 MCG TAB) RECTAL PRN (04:04)
[2020-02-13] MEDS ORDERED: Tranexamic Acid 1,000 MG in Sodium Chloride 0.9% 100 ML IV PRN (04:04)
[2020-02-13] MEDS ORDERED: Lidocaine 1% 30 ML SDV INJECT PRN (04:04)
[2020-02-13] MEDS ORDERED: Lactated Ringers 1,000 ML IV ONE (04:04)
[2020-02-13] MEDS ORDERED: Acetaminophen 325 MG Tab PO PRN (04:04)
[2020-02-13] MEDS ORDERED: Promethazine 25 MG/ML SDV IM PRN (04:04)
[2020-02-13] MEDS ORDERED: Sodium Chloride 0.9% 10 ML Syringe FLUSH PRN (04:04)
[2020-02-13] MEDS ORDERED: Carboprost Tromethamine 250 MCG/1 ML Amp IM PRN (04:04)
[2020-02-13] MEDS ORDERED: ePHEDrine 50 MG/ML SDV IVPUSH PRN (04:04)
[2020-02-13] MEDS ORDERED: Ondansetron 4 MG/2 ML SDV IVPUSH PRN (04:04)
[2020-02-13] MEDS ORDERED: Oxytocin/Normal Saline 30 UNIT/500 ML BAG IV SCH (04:15)
[2020-02-13] MEDS ORDERED: Lactated Ringers 500 ML IV SCH ×2 (04:15)
[2020-02-13] MEDS ORDERED: Sodium Chloride 0.9% 1,000 ML IV SCH (04:15)
[2020-02-13] MEDS ORDERED: Penicillin G Potassium 5,000,000 Unit Vial ONE (04:19)
[2020-02-13] MEDS ORDERED: EPINEPHrine 1 MG/1 ML Amp ONE (06:31)
[2020-02-13] MEDS ORDERED: fentaNYL 100 MCG/2 ML SDV ONE (06:31)
[2020-02-13] MEDS ORDERED: Sodium Bicarbonate 4.2% 2.5 MEQ/5 ML SDV ONE (06:32)
--- NOTE | 2020-02-13 06:55 | PCM.SN.2 ---
- Free Text/Narrative Note: Intrathecal. Sitting position, sterile prep and drape. 1% lidocaine w bicarb for skinwheal to L 2 L3 interspace, introducer, 24 ga pencan x 1. Pos CSF, neg heme, neg parasthesia. 1:1000 pf epi wash, 20 mcg pf sufenta, 30 mcg pf fentanyl, 0.4 ml pf NS and 6 mg of 0.75% pf marcaine injected after CSF aspiration. Pt to L lateral position. Procedure time 0635 to 0705
[2020-02-13] MEDS: Penicillin G Potassium 3 MILLUNITS in Sodium Chloride 0.9% 100 ML IV SCH ×2 (08:39→19:53)
--- NOTE | 2020-02-13 13:31 | PCM.DEL ---
L & D Note - General Info Date of Service: 02/13/20 (time of delivery 1118) Mother's Due Date: 02/17/20 (39w3d) - Delivery Note Labor: Spontaneous Delivery Outcome: Livebirth Delivery Method: Spontaneous Vaginal Delivery-Single Delivery Mode: Spontaneous Presentation: Right Occiput Anterior (SOFI) Nuchal Cord: Present (cut on perineum) Anesthesia Type: Intrathecal, Nitrous Oxide Amniotic Fluid Description: Clear Episiotomy Type: None Laceration: None Placenta: Intact (succenturiate lobes x 2 noted ), Expressed Cord: 3 Vessels Estimated Blood Loss: 250 Resuscitation Needed: Yes : Bulb Syringe, Stimulated, Warmed, Warmer Used Provider: Natacha Boucher Score 1 min: 3 Score 5 min: 9 Delivery Comments (Free Text/Narrative):: Luna delivered pulling legs back while supported by nurses. head delivered SOFI, and tight nuchal cord noted and cut/clamped on perineum by me. baby delivered and dried, stimulated, brought to warmer for resuscitation. APGARs 3 & 9 responded well to 30 secs bag and mask, strong cry, and brought to mom's chest. 3VC, cord blood obtained. perineum intact placenta delivered and found to have 2 succenturiate lobes EBL 250 fundus firm, flow decreased, pitocin per protocol baby nursing. both doing well, and will follow routine postpartumand nursery orders and instructions. [facility] - General Info Date of Service: 02/13/20 (tme of delivery 1118) - Patient Data Vitals - Most Recent: Last Vital Signs Temp 98.1 F 02/13/20 06:15 Pulse 74 02/13/20 07:10 Resp 16 02/13/20 07:10 BP 118/65 02/13/20 07:10 Pulse Ox 97 02/13/20 07:10 Weight - Most Recent: 219 lb I&O - Last 24 Hours: Intake & Output 02/12/20 02/13/20 02/13/20 22:59 06:59 14:59 Intake Total 1100 Balance 1100 Lab Results Last 24 Hours: Laboratory Results - last 24 hr 02/13/20 02/13/20 Range/Units 03:45 04:35 WBC 11.5 H (5.0-10.0) 10^3/uL RBC 4.02 L (4.2-5.4) 10^6/uL Hgb 11.9 L (12.0-16.0) g/dL Hct 35.6 L (37.0-47.0) % MCV 88.6 D (80-100) fL MCH 29.6 (27.0-34.0) pg MCHC 33.4 (33.0-35.0) g/dL Plt Count 153 (150-450) 10^3/uL SARS CoV-2 RNA Rapid TANVI Negative (NEGATIVE) Med Orders - Current: Current Medications Acetaminophen (Tylenol) 650 mg PO Q4H PRN PRN Reason: Pain (Mild 1-3) and fever Carboprost Tromethamine (Hemabate Ds) 250 mcg IM ASDIRECTED PRN PRN Reason: HEMORRHAGE Ephedrine Sulfate (Ephedrine Sulfate) 5 mg IVPUSH Q5M PRN PRN Reason: See Label Comments Lactated Ringer's (Ringers, Lactated) 1,000 mls @ 125 mls/hr IV ASDIRECTED [facility] Last Admin: 02/13/20 12:14 Dose: 125 mls/hr Documented by: Tranexamic Acid 1,000 mg/ (Sodium Chloride) 110 mls @ 660 mls/hr IV ONETIME PRN PRN Reason: Bleeding Oxytocin/Sodium Chloride (Pitocin In Ns 30 Unit/500 Ml) 30 unit in 500 mls @ 2 mls/hr IV TITRATE [facility]; Protocol Last Admin: 02/13/20 11:30 Dose: 500 munits/min, 500 mls/hr Documented by: Sodium Chloride (Normal Saline) 1,000 mls @ 500 mls/hr IV .BOLUS ERICK Lactated Ringer's (Ringers, Lactated) 500 mls @ 999 mls/hr IV SEECOMMENT ERICK Lactated Ringer's (Ringers, Lactated) 500 mls @ 999 mls/hr IV .BOLUS ERICK Penicillin G Potassium 3 (millunits/ Sodium Chloride) 100 mls @ 200 mls/hr IV Q4H [facility] Last Admin: 02/13/20 08:39 Dose: 200 mls/hr Documented by: Lidocaine HCl (Xylocaine-Mpf 1%) 30 ml INJECT ASDIRECTED PRN PRN Reason: Perineal Repair Methylergonovine Maleate (Methergine) 0.2 mg IM ASDIRECTED PRN PRN Reason: Hemorrhage Misoprostol (Cytotec) 800 mcg RECTAL ASDIRECTED PRN PRN Reason: Hemorrhage Naloxone HCl (Narcan) 0.1 mg IVPUSH SEECOMMENT PRN PRN Reason: Respiratory Depression Ondansetron HCl (Zofran) 4 mg IVPUSH Q4H PRN PRN Reason: Nausea/Vomiting Last Admin: 02/13/20 06:18 Dose: 4 mg Documented by: Promethazine HCl (Phenergan) 12.5 mg IM Q6H PRN PRN Reason: Nausea/Vomiting Sodium Chloride (Saline Flush) 10 ml FLUSH ASDIRECTED PRN PRN Reason: Keep Vein Open Discontinued Medications Epinephrine HCl (Adrenalin) Confirm Administered Dose 1 mg .ROUTE .STK-MED ONE Stop: 02/13/20 06:32 Fentanyl (Sublimaze) Confirm Administered Dose 100 mcg .ROUTE .STK-MED ONE Stop: 02/13/20 06:32 Penicillin G Potassium 5 (millunits/ Sodium Chloride) 100 mls @ 200 mls/hr IV ONETIME ONE Stop: 02/13/20 04:31 Last Admin: 02/13/20 04:25 Dose: 200 mls/hr Documented by: Lactated Ringer's (Ringers, Lactated) 1,000 mls @ 999 mls/hr IV BOLUS ONE Stop: 02/13/20 05:04 Penicillin G Potassium (Pfizerpen) Confirm Administered Dose 5 millunits .ROUTE .STK-MED ONE Stop: 02/13/20 04:20 Last Admin: 02/13/20 05:35 Dose: Not Given Documented by: Sodium Bicarbonate (Sodium Bicarbonate 4.2%) Confirm Administered Dose 2.5 meq .ROUTE .STK-MED ONE Stop: 02/13/20 06:33 Sufentanil Citrate (Sufenta) Confirm Administered Dose 50 mcg .ROUTE .STK-MED ONE Stop: 02/13/20 06:33 - Problem List & Annotations (1) Intact perineum SNOMED Code(s): 677998536 Code(s): VIF4833 - Status: Acute Current Visit: Yes (2) Mother currently breast-feeding SNOMED Code(s): 139315830 Code(s): Z39.1 - ENCOUNTER FOR CARE AND EXAMINATION OF LACTATING MOTHER Status: Acute Current Visit: Yes (3) Blood type B+ SNOMED Code(s): 367137769 Code(s): Z67.20 - TYPE B BLOOD, RH POSITIVE Status: Acute Current Visit: Yes (4) Rubella immune SNOMED Code(s): 739651190 Code(s): Z78.9 - OTHER SPECIFIED HEALTH STATUS Status: Acute Current Visit: Yes (5) (normal spontaneous vaginal delivery) SNOMED Code(s): 21787021, 230632957 Code(s): O80 - ENCOUNTER FOR FULL-TERM UNCOMPLICATED DELIVERY Status: Acute Current Visit: No (6) Normal labor SNOMED Code(s): 24989777 Code(s): O80 - ENCOUNTER FOR FULL-TERM UNCOMPLICATED DELIVERY; Z37.9 - OUT COME OF DELIVERY, UNSPECIFIED Status: Acute Current Visit: No (7) Positive GBS test SNOMED Code(s): 069687945, 862872344 Code(s): B95.1 - STREPTOCOCCUS, GROUP B, CAUSING DISEASES CLASSD ELSWHR Status: Acute Current Visit: No - Problem List Review Problem List Initiated/Reviewed/Updated: Yes - My Orders Last 24 Hours: My Active Orders 02/13/20 04:04 Patient Status [ADT] Routine Communication Order [RC] ASDIRECTED Communication Order [RC] PER UNIT ROUTINE Communication Order [RC] PER UNIT ROUTINE Communication Order [RC] PER UNIT ROUTINE Communication Order [RC] PER UNIT ROUTINE Nitrous Oxide Delivery [RC] ASDIRECTED Notify Provider Vital Signs OB [RC] ASDIRECTED Notify Provider [RC] PRN Pulse Oximetry [RC] ASDIRECTED Up ad Diana [RC] ASDIRECTED Verify Patient Consent Obtain [RC] ASDIRECTED Verify Patient Consent Obtain [RC] ASDIRECTED Vital Signs [RC] PER UNIT ROUTINE Acetaminophen [TylenoL] 650 mg PO Q4H PRN Carboprost Tromethamine [Hemabate DS] 250 mcg IM ASDIRECTED PRN Lidocaine 1% [Xylocaine-MPF 1%] 30 ml INJECT ASDIRECTED PRN Methylergonovine [Methergine] 0.2 mg IM ASDIRECTED PRN Naloxone [Narcan] 0.1 mg IVPUSH SEECOMMENT PRN Ondansetron [Zofran] 4 mg IVPUSH Q4H PRN Promethazine [Phenergan] 12.5 mg IM Q6H PRN Sodium Chloride 0.9% [Saline Flush] 10 ml FLUSH ASDIRECTED PRN Tranexamic Acid [Cyklokapron] 1,000 mg Sodium Chloride 0.9% [Normal Saline] 100 ml IV ONETIME ePHEDrine [ePHEDrine sulfate] 5 mg IVPUSH Q5M PRN miSOPROStoL [Cytotec] 800 mcg RECTAL ASDIRECTED PRN Blood Pressure [OM.PC] Routine Saline Lock Insert [OM.PC] Routine Resuscitation Status Routine 02/13/20 04:06 Pump Management, Intrathecal [RC] ASDIRECTED 02/13/20 04:15 Lactated Ringers [Ringers, Lactated] 1,000 ml IV ASDIRECTED Lactated Ringers [Ringers, Lactated] 500 ml IV .BOLUS Lactated Ringers [Ringers, Lactated] 500 ml IV SEECOMMENT Oxytocin/Normal Saline [Pitocin in NS 30 UNIT/500 ML] 30 unit in 500 ml IV TITRATE Sodium Chloride 0.9% [Normal Saline] 1,000 ml IV .BOLUS 02/13/20 08:00 Penicillin G Potassium [Pfizerpen] 3 millunits Sodium Chloride 0.9% [Normal Saline] 100 ml IV Q4H - Plan Plan:: Continue current orders and cares. == likely 1-2 days. [facility]
[2020-02-13] MEDS ORDERED: Zolpidem 5 MG Tab PO PRN (17:38)
[2020-02-13] MEDS ORDERED: Benzocaine/Menthol 20%-0.5% Spray 56 GM Canister TOP PRN (17:38)
[2020-02-13] MEDS ORDERED: Docusate Sodium 100 MG Cap PO PRN (17:38)
[2020-02-13] MEDS ORDERED: Simethicone 80 MG Tab.Chew PO PRN (17:38)
[2020-02-13] MEDS: Ibuprofen 800 MG Tab PO PRN (17:52)
[2020-02-14] MEDS ORDERED: Prenatal Multivitamin with Calcium/Folic Acid/Iron Tab PO SCH (09:00)
[2020-02-14] MEDS: Ibuprofen 800 MG Tab PO PRN (14:27)
--- NOTE | 2020-02-14 14:46 | PCM.DCSUM1 ---
Discharge Summary - Discharge Data Discharge Disposition: Home, Self-Care 01 Condition: Good - Referral to Home Health Primary Care Physician: Asmita Richards MD - Discharge Diagnosis/Problem(s) (1) Intact perineum SNOMED Code(s): 507057614 ICD Code: [id number] - Status: Acute Current Visit: Yes (2) Mother currently breast-feeding SNOMED Code(s): 269475323 ICD Code: Z39.1 - ENCOUNTER FOR CARE AND EXAMINATION OF LACTATING MOTHER Status: Acute Current Visit: Yes (3) Blood type B+ SNOMED Code(s): 191277913 ICD Code: Z67.20 - TYPE B BLOOD, RH POSITIVE Status: Acute Current Visit: Yes (4) Rubella immune SNOMED Code(s): 003445849 ICD Code: Z78.9 - OTHER SPECIFIED HEALTH STATUS Status: Acute Current Visit: Yes (5) (normal spontaneous vaginal delivery) SNOMED Code(s): 92061604, 696593767 ICD Code: O80 - ENCOUNTER FOR FULL-TERM UNCOMPLICATED DELIVERY Status: Acute Current Visit: No (6) Normal labor SNOMED Code(s): 88890720 ICD Code: O80 - ENCOUNTER FOR FULL-TERM UNCOMPLICATED DELIVERY; Z37.9 - OUTCOME OF DELIVERY, UNSPECIFIED Status: Acute Current Visit: No (7) Positive GBS test SNOMED Code(s): 095037115, 304712449 ICD Code: B95.1 - STREPTOCOCCUS, GROUP B, CAUSING DISEASES CLASSD ELSWHR Status: Acute Current Visit: No - Patient Summary/Data Consults: Consultations 02/13/20 17:38 Consult to Demolition Expert [CONS] Routine - Discharge Plan Home Medications: Home Meds Ferrous Sulfate 325 mg PO DAILY 08/27/17 [History] No122/Iron/Folic Acid [ Multi Tablet] 1 tab PO DAILY 08/27/17 [History] Calcium Carbonate/Vitamin D3 [Calcium 500 + Vit D Caplet] 1 tab PO DAILY 08/29/17 [History] Ascorbate Calcium [Vitamin C] 500 mg PO DAILY 02/13/20 [History] Docusate Sodium [Colace] 100 mg PO DAILY 02/13/20 [History] Lactobacillus Acidophilus [Probiotic] 1 each PO DAILY 02/13/20 [History] - Patient Data Vitals - Most Recent: Last Vital Signs Temp 98.8 F 02/14/20 09:00 Pulse 76 02/14/20 09:00 Resp 16 02/14/20 09:00 BP 114/76 02/14/20 09:00 Pulse Ox 100 02/14/20 09:00 Weight - Most Recent: 219 lb I&O - Last 24 hours: Intake & Output 02/13/20 02/14/20 02/14/20 22:59 06:59 14:59 Intake Total 1600 10 Output Total 1000 Balance 600 10 Med Orders - Current: Current Medications Acetaminophen (Tylenol) 650 mg PO Q4H PRN PRN Reason: Pain (Mild 1-3) and fever Last Admin: 02/14/20 08:49 Dose: 650 mg Documented by: Benzocaine/Menthol (Dermoplast Pain Relief [place]) 0 gm TOP Q4H PRN PRN Reason: Perineal comfort measures Carboprost Tromethamine (Hemabate Ds) 250 mcg IM ASDIRECTED PRN PRN Reason: HEMORRHAGE Docusate Sodium (Colace) 100 mg PO BID PRN PRN Reason: Constipation Last Admin: 02/14/20 08:49 Dose: 100 mg Documented by: Ephedrine Sulfate (Ephedrine Sulfate) 5 mg IVPUSH Q5M PRN PRN Reason: See Label Comments Lactated Ringer's (Ringers, Lactated) 1,000 mls @ 125 mls/hr IV ASDIRECTED ERICK Last Admin: 02/13/20 12:14 Dose: 125 mls/hr Documented by: Tranexamic Acid 1,000 mg/ (Sodium Chloride) 110 mls @ 660 mls/hr IV ONETIME PRN PRN Reason: Bleeding Oxytocin/Sodium Chloride (Pitocin In Ns 30 Unit/500 Ml) 30 unit in 500 mls @ 2 mls/hr IV TITRATE ERICK; Protocol Last Titration: 02/13/20 13:50 Dose: Infused Documented by: Sodium Chloride (Normal Saline) 1,000 mls @ 500 mls/hr IV .BOLUS ERICK Lactated Ringer's (Ringers, Lactated) 500 mls @ 999 mls/hr IV SEECOMMENT ERICK Lactated Ringer's (Ringers, Lactated) 500 mls @ 999 mls/hr IV .BOLUS ERICK Ibuprofen (Motrin) 800 mg PO Q8H PRN PRN Reason: Pain Last Admin: 02/14/20 14:27 Dose: 800 mg Documented by: Methylergonovine Maleate (Methergine) 0.2 mg IM ASDIRECTED PRN PRN Reason: Hemorrhage Misoprostol (Cytotec) 800 mcg RECTAL ASDIRECTED PRN PRN Reason: Hemorrhage Naloxone HCl (Narcan) 0.1 mg IVPUSH SEECOMMENT PRN PRN Reason: Respiratory Depression Ondansetron HCl (Zofran) 4 mg IVPUSH Q4H PRN PRN Reason: Nausea/Vomiting Last Admin: 02/13/20 06:18 Dose: 4 mg Documented by: Russat Multivit/Concert Singer/Iron/Folic Ac ( Plus Iron) 1 each PO DAILY [facility] Last Admin: 02/14/20 08:49 Dose: 1 each Documented by: Promethazine HCl (Phenergan) 12.5 mg IM Q6H PRN PRN Reason: Nausea/Vomiting Simethicone (Simethicone) 80 mg PO Q4H PRN PRN Reason: Gas Sodium Chloride (Saline Flush) 10 ml FLUSH ASDIRECTED PRN PRN Reason: Keep Vein Open Zolpidem Tartrate (Ambien) 5 mg PO BEDTIME PRN PRN Reason: Insomnia Discontinued Medications Epinephrine HCl (Adrenalin) Confirm Administered Dose 1 mg .ROUTE .STK-MED ONE Stop: 02/13/20 06:32 Last Admin: 02/13/20 17:53 Dose: Not Given Documented by: Fentanyl (Sublimaze) Confirm Administered Dose 100 mcg .ROUTE .STK-MED ONE Stop: 02/13/20 06:32 Last Admin: 02/13/20 17:53 Dose: Not Given Documented by: Penicillin G Potassium 5 (millunits/ Sodium Chloride) 100 mls @ 200 mls/hr IV ONETIME ONE Stop: 02/13/20 04:31 Last Admin: 02/13/20 04:25 Dose: 200 mls/hr Documented by: Lactated Ringer's (Ringers, Lactated) 1,000 mls @ 999 mls/hr IV BOLUS ONE Stop: 02/13/20 05:04 Last Admin: 02/13/20 17:53 Dose: Not Given Documented by: Penicillin G Potassium 3 (millunits/ Sodium Chloride) 100 mls @ 200 mls/hr IV Q4H [facility] Last Admin: 02/13/20 19:53 Dose: Not Given Documented by: Lidocaine HCl (Xylocaine-Mpf 1%) 30 ml INJECT ASDIRECTED PRN PRN Reason: Perineal Repair Penicillin G Potassium (Pfizerpen) Confirm Administered Dose 5 millunits .ROUTE .STK-MED ONE Stop: 02/13/20 04:20 Last Admin: 02/13/20 05:35 Dose: Not Given Documented by: Sodium Bicarbonate (Sodium Bicarbonate 4.2%) Confirm Administered Dose 2.5 meq .ROUTE .STK-MED ONE Stop: 02/13/20 06:33 Last Admin: 02/13/20 17:54 Dose: Not Given Documented by: Sufentanil Citrate (Sufenta) Confirm Administered Dose 50 mcg .ROUTE .STK-MED ONE Stop: 02/13/20 06:33 Last Admin: 02/13/20 17:54 Dose: Not Given Documented by:
[2020-02-14] MEDS ORDERED: fentaNYL 100 MCG/2 ML SDV ITHECAL ONE (15:19)
[2020-02-14] MEDS ORDERED: Sodium Bicarbonate 4.2% 2.5 MEQ/5 ML SDV ONE (15:19)
[2020-02-14] MEDS ORDERED: EPINEPHrine 1 MG/1 ML Amp ONE (15:19)
[2020-02-14] MEDS ORDERED: Sodium Chloride 0.9% 20 ML SDV ONE (15:19)
== END 2020-02-14 15:20 | disposition home or self-care (01) | DRG 807 ==
LOC: DL.OBCHECK 03:26 → DL.OB 04:11 → OBSVTOIN 11:18
PROVIDERS: ADMIT Family Medicine; ATTEND Family Medicine
PROC: 10E0XZZ Delivery of Products of Conception, External Approach (ICD-10-PCS; principal; 2020-02-13)
PROC: 3E0R3BZ Introduction of Anesthetic Agent into Spinal Canal, Percutaneous Approach (ICD-10-PCS; 2020-02-13)
PROC: 00HU33Z Insertion of Infusion Device into Spinal Canal, Percutaneous Approach (ICD-10-PCS; 2020-02-13)
DX: O99.824 Streptococcus B carrier state complicating childbirth (principal); Z37.0 Single live birth; O69.81X0 Labor and delivery complicated by cord around neck, without compression, not applicable or unspecified; Z20.828 Contact with and (suspected) exposure to other viral communicable diseases; Z3A.39 39 weeks gestation of pregnancy; Z62.0 Inadequate parental supervision and control; Z39.1 Encounter for care and examination of lactating mother
CPT/HCPCS: 01967; 36415; 59409; 85027; A9270-GY; J0171; J2405; J2540; J2590; J3010; J7120; U0002

== ENCOUNTER 2022-05-04 07:34 | Inpatient (IN) | payer OTHER ==
[2022-05-04] MEDS ORDERED: fentaNYL 100 MCG/2 ML SDV IVPUSH PRN (08:32)
[2022-05-04] MEDS ORDERED: Tranexamic Acid 1,000 MG in Sodium Chloride 0.9% 100 ML IV PRN (08:32)
[2022-05-04] MEDS ORDERED: Ondansetron 4 MG/2 ML SDV IVPUSH PRN ×2 (08:32→15:46)
[2022-05-04] MEDS ORDERED: Misoprostol 400 MCG (4 X 100 MCG TAB) RECTAL PRN (08:32)
[2022-05-04] MEDS ORDERED: Lidocaine 1% 30 ML SDV INJECT PRN (08:32)
[2022-05-04] MEDS ORDERED: Carboprost Tromethamine 250 MCG/1 ML Amp IM PRN (08:32)
[2022-05-04] MEDS ORDERED: Lactated Ringers 1,000 ML IV ONE (08:32)
[2022-05-04] MEDS ORDERED: Sodium Chloride 0.9% 10 ML Syringe FLUSH PRN (08:32)
[2022-05-04] MEDS ORDERED: Acetaminophen 325 MG Tab PO PRN ×2 (08:32→17:45)
[2022-05-04] MEDS ORDERED: Methylergonovine 0.2 MG/1 ML Amp IM PRN (08:32)
[2022-05-04] MEDS: Lactated Ringers 1,000 ML IV SCH ×2 (09:15→16:45)
[2022-05-04] MEDS ORDERED: Penicillin G Potassium 5 MILLUNITS in Sodium Chloride 0.9% 100 ML IV ONE (09:15)
[2022-05-04] MEDS: Oxytocin/Normal Saline 30 UNIT/500 ML BAG IV SCH ×2 (10:05→18:30)
[2022-05-04] MEDS ORDERED: EPINEPHrine 1 MG/ML SDV ONE ×2 (13:19→14:28)
[2022-05-04] MEDS ORDERED: Dexmedetomidine 200 MCG/2 ML SDV ONE (13:19)
[2022-05-04] MEDS ORDERED: Ondansetron 4 MG/2 ML SDV ONE (13:19)
[2022-05-04] MEDS ORDERED: Sodium Bicarbonate 4.2% 2.5 MEQ/5 ML SDV ONE ×2 (13:20→14:28)
[2022-05-04] MEDS: Penicillin G Potassium 3 MILLUNITS in Sodium Chloride 0.9% 100 ML IV SCH (13:30)
[2022-05-04] MEDS ORDERED: Morphine PF 10 MG/10 ML SDV IT ONE (14:28)
[2022-05-04] MEDS ORDERED: Dexmedetomidine 200 MCG/2 ML SDV IT ONE (14:28)
[2022-05-04] MEDS ORDERED: Sodium Chloride 0.9% 20 ML SDV ONE (14:28)
[2022-05-04] MEDS ORDERED: ePHEDrine 50 MG/ML SDV IVPUSH PRN (15:46)
[2022-05-04] MEDS ORDERED: Naloxone 2 MG/2 ML Syringe IVPUSH PRN (15:46)
[2022-05-04] MEDS ORDERED: Promethazine 25 MG/ML SDV IM PRN (15:46)
[2022-05-04] MEDS ORDERED: Lactated Ringers 500 ML IV SCH ×2 (16:00)
[2022-05-04] MEDS ORDERED: Benzocaine/Menthol 20%-0.5% Spray 78 GM Cannister TOP PRN (17:45)
[2022-05-04] MEDS ORDERED: Oxytocin 10 Units/1 ML SDV IM PRN (17:45)
[2022-05-04] MEDS ORDERED: Simethicone 80 MG Tab.Chew PO PRN (17:45)
[2022-05-04] MEDS ORDERED: Witch Hazel Medicated Pads 100/Jar TOP PRN (18:45)
[2022-05-04] MEDS ORDERED: Hydrocortisone 2.5% Crm 30 GM Tube TOP PRN (19:48)
[2022-05-04] MEDS: Docusate Sodium 100 MG Cap PO PRN (20:07)
[2022-05-04] MEDS: Ibuprofen 800 MG Tab PO PRN (22:24)
[2022-05-05] MEDS: Ibuprofen 800 MG Tab PO PRN ×2 (09:05→21:06)
[2022-05-05] MEDS: Prenatal Multivitamin with Calcium/Folic Acid/Iron Tab PO SCH (09:05)
[2022-05-05] MEDS: Docusate Sodium 100 MG Cap PO PRN ×2 (09:07→21:06)
[2022-05-05] MEDS: Penicillin G Potassium 3 MILLUNITS in Sodium Chloride 0.9% 100 ML IV SCH (10:02)
[2022-05-06] MEDS: Ibuprofen 800 MG Tab PO PRN (05:41)
[2022-05-06] MEDS: Docusate Sodium 100 MG Cap PO PRN (08:14)
[2022-05-06] MEDS: Prenatal Multivitamin with Calcium/Folic Acid/Iron Tab PO SCH (08:14)
== END 2022-05-06 09:55 | disposition home or self-care (01) | DRG 806 ==
LOC: DL.OB 07:34 → OBSVTOIN 17:00
PROVIDERS: ADMIT Family Medicine; ATTEND Family Medicine
PROC: 10E0XZZ Delivery of Products of Conception, External Approach (ICD-10-PCS; principal; 2022-05-04)
PROC: 10907ZC Drainage of Amniotic Fluid, Therapeutic from Products of Conception, Via Natural or Artificial Opening (ICD-10-PCS; 2022-05-04)
PROC: 3E033VJ Introduction of Other Hormone into Peripheral Vein, Percutaneous Approach (ICD-10-PCS; 2022-05-04)
PROC: 00HU33Z Insertion of Infusion Device into Spinal Canal, Percutaneous Approach (ICD-10-PCS; 2022-05-04)
PROC: 3E0R3BZ Introduction of Anesthetic Agent into Spinal Canal, Percutaneous Approach (ICD-10-PCS; 2022-05-04)
DX: O99.02 Anemia complicating childbirth (principal); O72.0 Third-stage hemorrhage; Z37.0 Single live birth; O99.824 Streptococcus B carrier state complicating childbirth; Z20.822 Contact with and (suspected) exposure to COVID-19; D64.9 Anemia, unspecified; Z88.8 Allergy status to other drugs, medicaments and biological substances; Z79.899 Other long term (current) drug therapy; Z3A.39 39 weeks gestation of pregnancy; Z86.16 Personal history of COVID-19; Z90.49 Acquired absence of other specified parts of digestive tract
CPT/HCPCS: 01967; 36415; 51701; 59025; 59409; 85027; 86592; A9270-GY; J0171; J2210; J2270; J2405; J2540; J2590; J3490; J7050; J7120; U0002